=== PATIENT | female | born 1980 | race Caucasian/White ===

== ENCOUNTER 2016-05-15 15:06 | Emergency (ER) | payer OTHER ==
[2016-05-15 15:20] VITALS: BP 134/73
[2016-05-15] MEDS ORDERED: BENZONATATE 100 MG CAPSULE. PO ONE (15:30)
[2016-05-15] MEDS ORDERED: PREDNISONE 20 MG TABLET PO ONE (15:30)
[2016-05-15] MEDS ORDERED: IPRATRPIUM/ALBUTEROL 0.5/2.5MG 3 ML NEBU. NEB ONE (15:30)
--- NOTE | 2016-05-15 15:30 | PHYS DOC ---
Past Medical History Past Medical History: No Pertinent History Past Surgical History: Appendectomy Alcohol Use: None Drug Use: None Adult General Chief Complaint Chief Complaint: COUGH HPI HPI Patient is a 36 year old female who presents with a productive cough, nasal congestion, body aches and subjective fevers for 2 days. Patient is also complaining of a rash on her right forearm that she noted a week ago. Patient is a smoker. Patient works at the [employer]. Review of Systems Review of Systems Constitutional: Body aches and chills Eyes: Denies change in visual acuity, redness, or eye pain [] HENT: See history of present illness Respiratory: Cough Cardiovascular: No additional information not addressed in HPI [] GI: Denies abdominal pain, nausea, vomiting, bloody stools or diarrhea [] : Denies dysuria or hematuria [] Musculoskeletal: Denies back pain or joint pain [] Integument: Right forearm rash Neurologic: Denies headache, focal weakness or sensory changes [] Endocrine: Denies polyuria or polydipsia [] Current Medications Current Medications Current Medications Medications (Trade) Dose Ordered Sig/Enzo Start Time Stop Time Status Last Admin Dose Admin Albuterol/ Ipratropium (Duoneb) 3 ml STK-MED ONCE 05/15/16 15:38 05/15/16 15:39 DC Benzonatate (Tessalon Perle) 200 mg 1X ONCE 05/15/16 15:30 05/15/16 15:38 DC 05/15/16 15:44 200 MG Prednisone (Prednisone) 60 mg 1X ONCE 05/15/16 15:30 05/15/16 15:38 DC 05/15/16 15:44 60 MG Allergies Allergies Allergies Coded Allergies Type Severity Reaction Last Updated Verified codeine Allergy Severe pass out sob 05/15/16 Yes Physical Exam Physical Exam Constitutional: Well developed, well nourished, no acute distress, non-toxic appearance. [] HENT: Normocephalic, atraumatic, bilateral external ears normal, oropharynx moist, no oral exudates, nose normal. [] Eyes: PERRLA, EOMI, conjunctiva normal, no discharge. [] Neck: Normal range of motion, no tenderness, supple, no stridor. [] Cardiovascular:Heart rate regular rhythm, no murmur [] Lungs & Thorax: Bilateral breath sounds clear to auscultation [] Abdomen: Bowel sounds normal, soft, no tenderness, no masses, no pulsatile masses. [] Skin: Right forearm with a grouped fluid field tiny vesicles suspicious consistent with shingles Extremities: No tenderness, no cyanosis, no clubbing, ROM intact, no edema. [] Neurologic: Alert and oriented X 3, normal motor function, normal sensory function, no focal deficits noted. [] Psychologic: Affect normal, judgement normal, mood normal. [] Current Patient Data Vital Signs Vital Signs Date Time Temp Pulse Resp B/P Pulse Ox O2 Delivery O2 Flow Rate FiO2 05/15/16 15:40 99 Room Air 05/15/16 15:20 99.2 108 18 99.2 Lab Values Laboratory Tests Test 05/15/16 15:24 Influenza Type A Antigen Negative (NEGATIVE) Influenza Type B Antigen Positive (NEGATIVE) EKG EKG [] Radiology/Procedures Radiology/Procedures [] Course & Med Decision Making Course & Med Decision Making Pertinent Labs and Imaging studies reviewed. (See chart for details) Patient is in the ED with a productive cough body aches and chills. Patient was actively coughing on arrival to the ED, she was given a breathing treatment, prednisone and Tessalon Perles. She is also complaining of a rash to the right forearm, the rash is consistent with shingles. She's had the rash for one week hence antiviral medications will not be of any help. Chest x-ray interpreted by Dr. Hill is negative for any acute findings. Positive for influenza B. Patient was encouraged to consider smoking cessation. Discharged with Tamiflu prednisone for 4 more days, prednisone for 4 more days, and Tessalon Perles. Follow-up with her own PCP in the next 7 days. Instructed to return to the ED if symptoms worsen. Dragon Disclaimer Dragon Disclaimer This electronic medical record was generated, in whole or in part, using a voice recognition dictation system. Departure Departure Impression: Primary Impression: Acute bronchitis Additional Impressions: Shingles rash Smoking addiction Influenza B Disposition: HOME, SELF-CARE Condition: STABLE Patient Instructions: Acute Bronchitis, Shingles, Smoking Cessation Additional Instructions: You were seen for she shingles of the right forearm,you have had the lesions for one week, antiviral medications will not be of any benefit. Take Benadryl as needed for itching or pain. Consider smoking cessation. He also tested positive for influenza B. We also put you on Tamiflu. Take it as prescribed. Use the other medications as prescribed. Follow-up with your doctor in one week , come back to the ED symptoms worsen. Scripts Albuterol Sulfate (Proair Respiclick)90 Mcg [id number] Puff IH PRN Q6HRS PRN SHORTNESS OF BREATH #1 INHALER Prov:JOSE BAGLEY APRN 05/15/16 Benzonatate (Tessalon Perle)100 Mg Capsule1 Cap PO TID #30 CAP Prov:JOSE BAGLEY APRN 05/15/16 Prednisone 50 Mg Tablet1 Tab PO DAILY #4 TAB Prov:JOSE BAGLEY APRN 05/15/16 Oseltamivir Phosphate (Tamiflu)75 Mg Capsule1 Cap PO BID #10 CAP Prov:JOSE BAGLEY APRN 05/15/16 Problem Qualifiers Primary Impression: Acute bronchitis Bronchitis organism: unspecified organism Qualified Code: J20.9 - Acute bronchitis, unspecified Additional Impressions: Shingles rash Herpes zoster complications: without complications Qualified Code: B02.9 - Zoster without complications JOSE BAGLEY APRN May 15, 2016 15:30
[2016-05-15] MEDS ORDERED: IPRATRPIUM/ALBUTEROL 0.5/2.5MG 3 ML NEBU. ONE (15:38)
[2016-05-15 16:02] LABS: OBC FLU VALID
[2016-05-15] MEDS ORDERED: BENZ100C PO (16:17)
[2016-05-15] MEDS ORDERED: PROAIR RESPICL90 MCG IH (16:17)
[2016-05-15] MEDS ORDERED: OSEL75CA PO (16:17)
[2016-05-15] MEDS ORDERED: PRED50TA PO (16:17)
--- NOTE | 2016-05-16 08:18 | RAD ---
Chest, 2 views, 05/15/2016: History: Cough, shortness of breath The heart size and pulmonary vascularity are normal. No pulmonary infiltrates are seen. There is no evidence of pleural fluid. IMPRESSION: No acute cardiopulmonary abnormality is detected.
== END 2016-05-15 16:30 | disposition home or self-care (01) ==
LOC: ER 15:06
DX: J20.9 Acute bronchitis, unspecified (principal); B02.9 Zoster without complications; R21 Rash and other nonspecific skin eruption; Z88.5 Allergy status to narcotic agent
CPT/HCPCS: 71020; 87804; 94250; 94640; 99285; J7512; J7620